=== PATIENT | male | born 1995 | race Caucasian/White ===

== ENCOUNTER 2017-11-05 08:59 | Emergency (ER) | payer OTHER ==
[2017-11-05] MEDS: FAMOTIDINE 20 MG TAB PO (10:08)
[2017-11-05] MEDS: DIPHENHYDRAMINE 50 MG INJ IM (10:08)
[2017-11-05] MEDS: predniSONE 20 MG TAB PO (10:08)
== END 2017-11-05 11:03 | disposition home or self-care (01) ==
LOC: FTE 08:59
DX: R21 Rash and other nonspecific skin eruption (principal)
CPT/HCPCS: 96372; 99284-25